=== PATIENT | male | born 1950 | race Caucasian/White ===

== ENCOUNTER 2020-06-12 18:42 | Emergency (ER) | payer MEDICARE ==
[~2020-06-12] VITALS: Ht 177.8 cm; Wt 81.4 kg
[2020-06-12 18:53] VITALS: BP 151/106
[2020-06-12] MEDS ORDERED: MORPHINE SULFATE 4 MG/ML, 1ML IVPush PRN (19:00)
[2020-06-12] MEDS ORDERED: SODIUM CHLORIDE FLUSH 10ML SYR IVF ONE (19:00)
[2020-06-12] MEDS ORDERED: MORPHINE SULFATE 4 MG/ML, 1ML ONE (19:29)
[2020-06-12] MEDS ORDERED: IBUPROFEN 600 MG TABLET ONE (19:47)
[2020-06-12] MEDS ORDERED: OXYcodone/APAP 10/325MG TABLET ONE (19:47)
[2020-06-12] MEDS ORDERED: OXYcodone/APAP 10/325MG TABLET PO ONE (20:00)
[2020-06-12] MEDS ORDERED: IBUPROFEN 600 MG TABLET PO ONE (20:00)
== END 2020-06-12 19:54 | disposition home or self-care (01) ==
LOC: ED 19:46
DX: S43.102A Unspecified dislocation of left acromioclavicular joint, initial encounter (principal); W01.0XXA Fall on same level from slipping, tripping and stumbling without subsequent striking against object, initial encounter; Y93.89 Activity, other specified; Y92.828 Other wilderness area as the place of occurrence of the external cause; Y99.8 Other external cause status
CPT/HCPCS: 29105; 29505; 99283